=== PATIENT | female | born 1975 | race Caucasian/White ===

== ENCOUNTER 2017-04-07 17:35 | Inpatient (IN) ==
--- NOTE | 2017-04-07 18:00 | Emergency Department Note ---
Disposition Clinical Impression: Suicidal ideation, Intoxication Overdose Qualifiers: Encounter type: initial encounter Injury intent: intentional self-harm Qualified Code(s): T50.902A - Poisoning by unspecified drugs, medicaments and biological substances, intentional self-harm, initial encounter Disposition: Admitted As Inpatient Condition: Good General Adult HPI - General Chief complaint: ED Psychiatric Symptoms Stated complaint: si/overdose/etoh Time Seen by Provider: 04/07/17 17:39 Source: patient Limitations: no limitations Nursing Notes Reviewed: Yes Vital Signs Reviewed: Yes - History of Present Illness HPI Narrative: Patient here for evaluation of suicidal ideation and overdose. Patient was found in the garage by her . Patient had multiple pill bottles as well as alcohol out. There was no running motor vehicle however there were spray paint cans with no specific evidence of huffing. Suicidal intention 2/2 recent "stresses" that include multiple aspects of her life. Pain Scale: 0 - Related Data Home Medications Medication Instructions Recorded Confirmed ALPRAZolam [Xanax 0.25 MG Tablet] 0.25 mg PO TID PRN 04/07/17 04/07/17 Albuterol Sulfate [Albuterol 1 puff IH DAILY 04/07/17 04/07/17 Inhaler] Allergies Allergy/AdvReac Type Severity Reaction Status Date / Time No Known Allergies Allergy Verified 04/07/17 17:51 All systems ED: reviewed and negative except as stated. Constitutional: Denies: fever, weakness Cardiovascular: Denies: chest pain, palpitations, dyspnea on exertion Respiratory: Denies: cough, dyspnea Gastrointestinal: Denies: abdominal pain, nausea Genitourinary: Denies: urgency, dysuria Musculoskeletal: Denies: back pain, neck pain Neurological: Denies: headache, weakness Psychiatric: Reports: suicidal thoughts Endocrine: Reports: fatigue Past Medical History - Past Medical History Medical history: Reports: non-contributory - Social History Smoking Status: Never smoker Smokeless Tobacco Status: No Alcohol use: Reports: none Drug use: Reports: none Physical Exam General appearance: mild sluring of words Eyes: anicteric sclerae, moist conjunctivae; PERRL HENT: Atraumatic; oropharynx clear with moist mucous membranes and no mucosal ulcerations; right pupil 2mm left 3mm reactive b/l - chronic Neck: Normal inspection; Trachea midline; FROM, supple Lungs: CTA, with normal respiratory effort and no intercostal retractions CV: RRR, no MRGs Abdomen: Soft, non-tender; no rebound or gaurding Extremities: No peripheral edema or extremity lymphadenopathy Skin: Normal temperature; no rash, ulcers or lesions Psych: Suicidal ideation Neuro: alert and oriented to person, place and time - General Limitations: no limitations General appearance: alert Course - Consultations Consultation #1: Discussed with poison control. Patient peak asthma concentration of alprazolam would be in the first 1-2 hours. The other medications include symptomatic control. No intervention needed at this time. Consultation #2: Discussed with hospitalist. Patient except for admission. Vital Signs Temperature 98.6 F 04/07/17 17:38 Pulse Rate 101 04/07/17 17:38 Respiratory Rate 18 04/07/17 17:38 Blood Pressure 106/56 04/07/17 17:38 O2 Sat by Pulse Oximetry 95 04/07/17 17:38 Temperature 98.2 F 04/08/17 12:06 Pulse Rate 97 04/08/17 12:06 Respiratory Rate 16 04/08/17 12:06 Blood Pressure 123/63 04/08/17 12:06 O2 Sat by Pulse Oximetry 98 04/08/17 12:06 Oxygen Delivery Oxygen Delivery Room Air Medical Decision Making - Medical Records Medical records reviewed: Yes I reviewed the patient's medical records. - Lab Data Lab results reviewed: Yes I reviewed the patient's lab results. Result diagrams: 04/08/17 03:48 04/08/17 03:48 Lab Results 04/07/17 04/07/17 04/07/17 Range/Units 17:45 17:45 17:45 WBC (4.3-11.1) K/mcL RBC (3.82-4.97) M/mcL Hgb (11.5-15.4) g/dL Hct (35.3-44.9) % MCV (83.0-100.0) fL MCH (28.0-33.3) pg MCHC (31.6-35.5) g/dL RDW (11.5-14.5) % Plt Count (140-400) K/mcL MPV (9.4-12.4) fL Immature Gran % (0-4) % Seg Neutrophils % % Lymphocytes % % Monocytes % % Eosinophils % % Basophils % % Neutrophils # (1.6-8.9) K/mcL Lymphocytes # (0.6-4.6) K/mcL Monocytes # (0.0-1.3) K/mcL Eosinophils # (0.0-0.6) K/mcL Basophils # (0.0-0.2) K/mcL Carboxyhemoglobin (0-5) % Sodium (136-145) mEq/L Potassium (3.5-4.5) mEq/L Chloride (98-109) mEq/L Carbon Dioxide (19-29) mEq/L BUN (7-20) mg/dL Creatinine (0.57-1.11) mg/dL Est GFR ( Amer) (> 60) Est GFR (Non-Af Amer) (> 60) BUN/Creatinine Ratio (6-26) Glucose (70-99) mg/dL Calculated Osmolality (280-300) Calcium (8.6-10.8) mg/dL Total Bilirubin (0.2-1.2) mg/dL Direct Bilirubin (0.0-0.5) mg/dL Indirect Bilirubin (0.0-1.2) mg/dL AST (5-34) Units/L ALT (0-55) Units/L Alkaline Phosphatase (38-126) Units/L Serum Total Protein (6.0-8.3) g/dL Albumin (3.5-5.0) g/dL Globulin (2.4-3.5) g/dL Albumin/Globulin Ratio (1.1-2.2) Serum , Qual (Negative) Urine Color Yellow (Yellow) Urine Clarity Clear (Clear) Urine pH 6.5 (5.0-8.0) pH Units Ur Specific [place] 1.006 L (1.010-1.025) Urine Protein Negative (Neg-Trace) mg/dL Urine Glucose (UA) Normal (Normal) mg/dL Urine Ketones Negative (Negative) mg/dL Urine Blood Negative (Negative) Urine Nitrite Negative (Negative) Urine Bilirubin Negative (Negative) Urine Urobilinogen Normal (Normal) mg/dL Ur Leukocyte Esterase Negative (Negative) Urine Test Negative (Negative) Salicylates (15-30) mg/dL Urine Opiates Screen Negative (Rraqpz=284) ng/mL Acetaminophen (10-30) mcg/mL Ur Barbiturates Screen Negative (Fvypbb=971) ng/mL Ur Phencyclidine Scrn Negative (Cutoff=25) ng/mL Ur Amphetamines Screen Negative (Oudbse=1722) ng/mL U Benzodiazepines Scrn Negative (Niluvm=264) ng/mL Urine Cocaine Screen Negative (Cutoff= 300) ng/mL U Marijuana (THC) Screen Negative (Cutoff = 50) ng/mL Ethyl Alcohol (0-10) mg/dL 04/07/17 04/07/17 04/07/17 Range/Units 18:19 18:19 18:19 WBC 10.5 (4.3-11.1) K/mcL RBC 4.76 (3.82-4.97) M/mcL Hgb 14.6 (11.5-15.4) g/dL Hct 43.4 (35.3-44.9) % MCV 91.2 (83.0-100.0) fL MCH 30.7 (28.0-33.3) pg MCHC 33.6 (31.6-35.5) g/dL RDW 12.8 (11.5-14.5) % Plt Count 231 (140-400) K/mcL MPV 10.1 (9.4-12.4) fL Immature Gran % 0.4 (0-4) % Seg Neutrophils % 66.8 % Lymphocytes % 25.4 % Monocytes % 5.1 % Eosinophils % 1.3 % Basophils % 1.0 % Neutrophils # 7.0 (1.6-8.9) K/mcL Lymphocytes # 2.7 (0.6-4.6) K/mcL Monocytes # 0.5 (0.0-1.3) K/mcL Eosinophils # 0.1 (0.0-0.6) K/mcL Basophils # 0.1 (0.0-0.2) K/mcL Carboxyhemoglobin (0-5) % Sodium 137 (136-145) mEq/L Potassium 3.6 (3.5-4.5) mEq/L Chloride 102 (98-109) mEq/L Carbon Dioxide 23 (19-29) mEq/L BUN 3 L (7-20) mg/dL Creatinine 0.63 (0.57-1.11) mg/dL Est GFR ( Amer) > 60 (> 60) Est GFR (Non-Af Amer) > 60 (> 60) BUN/Creatinine Ratio 5 L (6-26) Glucose 89 (70-99) mg/dL Calculated Osmolality 280 (280-300) Calcium 8.7 (8.6-10.8) mg/dL Total Bilirubin 0.7 (0.2-1.2) mg/dL Direct Bilirubin 0.3 (0.0-0.5) mg/dL Indirect Bilirubin 0.4 (0.0-1.2) mg/dL AST 38 H (5-34) Units/L ALT 35 (0-55) Units/L Alkaline Phosphatase 74 (38-126) Units/L Serum Total Protein 6.8 (6.0-8.3) g/dL Albumin 3.9 (3.5-5.0) g/dL Globulin 2.9 (2.4-3.5) g/dL Albumin/Globulin Ratio 1.3 (1.1-2.2) Serum , Qual Negative (Negative) Urine Color (Yellow) Urine Clarity (Clear) Urine pH (5.0-8.0) pH Units Ur Specific [place] (1.010-1.025) Urine Protein (Neg-Trace) mg/dL Urine Glucose (UA) (Normal) mg/dL Urine Ketones (Negative) mg/dL Urine Blood (Negative) Urine Nitrite (Negative) Urine Bilirubin (Negative) Urine Urobilinogen (Normal) mg/dL Ur Leukocyte Esterase (Negative) Urine Test (Negative) Salicylates < 5.0 L (15-30) mg/dL Urine Opiates Screen (Rzssvz=750) ng/mL Acetaminophen < 1.0 L (10-30) mcg/mL Ur Barbiturates Screen (Wfbstc=349) ng/mL Ur Phencyclidine Scrn (Cutoff=25) ng/mL Ur Amphetamines Screen (Paiift=0307) ng/mL U Benzodiazepines Scrn (Epxrcd=311) ng/mL Urine Cocaine Screen (Cutoff= 300) ng/mL U Marijuana (THC) Screen (Cutoff = 50) ng/mL Ethyl Alcohol 304 H (0-10) mg/dL 04/07/17 Range/Units 18:19 WBC (4.3-11.1) K/mcL RBC (3.82-4.97) M/mcL Hgb (11.5-15.4) g/dL Hct (35.3-44.9) % MCV (83.0-100.0) fL MCH (28.0-33.3) pg MCHC (31.6-35.5) g/dL RDW (11.5-14.5) % Plt Count (140-400) K/mcL MPV (9.4-12.4) fL Immature Gran % (0-4) % Seg Neutrophils % % Lymphocytes % % Monocytes % % Eosinophils % % Basophils % % Neutrophils # (1.6-8.9) K/mcL Lymphocytes # (0.6-4.6) K/mcL Monocytes # (0.0-1.3) K/mcL Eosinophils # (0.0-0.6) K/mcL Basophils # (0.0-0.2) K/mcL Carboxyhemoglobin 12.1 H (0-5) % Sodium (136-145) mEq/L Potassium (3.5-4.5) mEq/L Chloride (98-109) mEq/L Carbon Dioxide (19-29) mEq/L BUN (7-20) mg/dL Creatinine (0.57-1.11) mg/dL Est GFR ( Amer) (> 60) Est GFR (Non-Af Amer) (> 60) BUN/Creatinine Ratio (6-26) Glucose (70-99) mg/dL Calculated Osmolality (280-300) Calcium (8.6-10.8) mg/dL Total Bilirubin (0.2-1.2) mg/dL Direct Bilirubin (0.0-0.5) mg/dL Indirect Bilirubin (0.0-1.2) mg/dL AST (5-34) Units/L ALT (0-55) Units/L Alkaline Phosphatase (38-126) Units/L Serum Total Protein (6.0-8.3) g/dL Albumin (3.5-5.0) g/dL Globulin (2.4-3.5) g/dL Albumin/Globulin Ratio (1.1-2.2) Serum , Qual (Negative) Urine Color (Yellow) Urine Clarity (Clear) Urine pH (5.0-8.0) pH Units Ur Specific [place] (1.010-1.025) Urine Protein (Neg-Trace) mg/dL Urine Glucose (UA) (Normal) mg/dL Urine Ketones (Negative) mg/dL Urine Blood (Negative) Urine Nitrite (Negative) Urine Bilirubin (Negative) Urine Urobilinogen (Normal) mg/dL Ur Leukocyte Esterase (Negative) Urine Test (Negative) Salicylates (15-30) mg/dL Urine Opiates Screen (Bgzrjf=072) ng/mL Acetaminophen (10-30) mcg/mL Ur Barbiturates Screen (Vmvcrz=851) ng/mL Ur Phencyclidine Scrn (Cutoff=25) ng/mL Ur Amphetamines Screen (Yxvleq=2468) ng/mL U Benzodiazepines Scrn (Bxiubj=777) ng/mL Urine Cocaine Screen (Cutoff= 300) ng/mL U Marijuana (THC) Screen (Cutoff = 50) ng/mL Ethyl Alcohol (0-10) mg/dL - Radiology Data Radiology results reviewed: Yes I reviewed the patient's radiology results. - EKG Data EKG #1 EKG attestation: Yes I reviewed and interpreted this EKG. EKG results narrative: EKG shows sinus rhythm with short MO interval. Ventricular rate 97. PR107. QRS 98. QTC 415. Patient has no significant ST elevations or depressions. No specific T-wave changes. No previous EKGs for comparison. Attestation Statement - Attestation Attestation: I, Alexx Milner, examined this patient and my medical decision-making was reviewed with the [employer] EXPERT/PA/Advanced Practice Nurse/Resident Physician. I agree with the documented findings, disposition and treatment plan as described except to the extent set forth below. 41-year-old female brought in by EMS with concerns of suicidal ideation. states the patient has been drinking increased amounts of alcohol over the past few weeks. She is also begun to hide alcohol around the house. found patient in garage with altered mental status, on the floor. She was interactive when he entered the room however she is intoxicated admitting to several beers. There were also multiple pill bottles surrounding the patient and patient states she took "a handful of pills" her how many pills are missing from the pill bottles as they are old prescriptions. Patient is awake and alert in the emergency department although she is visibly intoxicated. Resident spoke with poison control. Patient will be admitted to the hospitalist for further care and evaluation. EKG showed normal sinus rhythm with rate 97, QRS 98, QTC 415.
[2017-04-07] MEDS ORDERED: 0.9 % Sodium Chloride 1,000 ML IVC ONE (18:01)
[2017-04-07 18:11] LABS: Bilirubin,Urine Negative (Negative); Blood,Urine Negative (Negative); Clarity,Urine Clear (Clear); Color,Urine Yellow (Yellow); Glucose,Urine (UA) Normal (Normal); Ketones,Urine Negative (Negative); Leukocyte Esterase,Urine Negative (Negative); Nitrite,Urine Negative (Negative); PH,Urine 6.5 pH Units (5.0-8.0); Protein,Urine Negative (Neg-Trace); Specific Gravity,Urine 1.006 (1.010-1.025); Urobilinogen,Urine Normal (Normal)
[2017-04-07 18:17] LABS: Amphetamine Screen,Urine Negative ng/mL (Cutoff=1000); Barbiturate Screen,Urine Negative ng/mL (Cutoff=200); Benzodiazepines Screen,Urine Negative ng/mL (Cutoff=200); Cannabinoid Screen,Urine Negative ng/mL (Cutoff = 50); Cocaine Screen,Urine Negative ng/mL (Cutoff= 300); Opiate Screen,Urine Negative ng/mL (Cutoff=300); Phencyclidine Screen,Urine Negative ng/mL (Cutoff=25)
[2017-04-07 18:27] LABS: Basophils # 0.1 K/mcL (0.0-0.2); Eosinophils # 0.1 K/mcL (0.0-0.6); Eosinophils % 1.3 %; Hematocrit 43.4 % (35.3-44.9); Hemoglobin 14.6 g/dL (11.5-15.4); Immature Granulocytes % 0.4 % (0-4); Lymphocytes # 2.7 K/mcL (0.6-4.6); Lymphocytes % 25.4 %; Mean Corpuscular HGB Conc 33.6 g/dL (31.6-35.5); Mean Corpuscular Hemoglobin 30.7 pg (28.0-33.3); Mean Corpuscular Volume 91.2 fL (83.0-100.0); Mean Platelet Volume 10.1 fL (9.4-12.4); Monocytes # 0.5 K/mcL (0.0-1.3); Monocytes % 5.1 %; Platelet Count 231 K/mcL (140-400); Red Blood Count 4.76 M/mcL (3.82-4.97); Red Cell Distribution Width 12.8 % (11.5-14.5); Segmented Neutrophils % 66.8 %
[2017-04-07 18:43] LABS: Alanine Aminotransferase 35 Units/L (0-55); Albumin 3.9 g/dL (3.5-5.0); Albumin/Globulin Ratio 1.3 (1.1-2.2); Alkaline Phosphatase 74 Units/L (38-126); Aspartate Amino Transferase 38 Units/L (5-34); BUN/Creatinine Ratio 5 (6-26); Bilirubin,Direct 0.3 mg/dL (0.0-0.5); Bilirubin,Indirect 0.4 mg/dL (0.0-1.2); Bilirubin,Total 0.7 mg/dL (0.2-1.2); Calcium 8.7 mg/dL (8.6-10.8); Carbon Dioxide 23 mEq/L (19-29); Chloride 102 mEq/L (98-109); Ethanol 304 mg/dL (0-10); Globulin 2.9 g/dL (2.4-3.5); Glucose 89 mg/dL (70-99); Osmolality,Calculated 280 (280-300); Potassium 3.6 mEq/L (3.5-4.5); Sodium 137 mEq/L (136-145); Total Protein 6.8 g/dL (6.0-8.3); eGFR For African Americans > 60 (> 60); eGFR For Non-African Americans > 60 (> 60)
[2017-04-07 18:44] LABS: Acetaminophen < 1.0 mcg/mL (10-30); Blood Urea Nitrogen 3 mg/dL (7-20); Salicylate < 5.0 mg/dL (15-30)
[2017-04-07] MEDS ORDERED: Naloxone 0.4 MG/ML INJ IVP PRN (20:22)
[2017-04-07] MEDS ORDERED: Acetaminophen 325 MG TABLET PO PRN (20:22)
[2017-04-07] MEDS ORDERED: Ondansetron 4 MG/2 ML VIAL IVP PRN (20:22)
[2017-04-07] MEDS ORDERED: Ketorolac 30 MG/ML VIAL IVP PRN (20:22)
[2017-04-07] MEDS ORDERED: *HR* LORazepam 2 MG/ML VIAL IVP PRN ×3 (20:26)
[2017-04-07] MEDS ORDERED: Ipratropium/Albuterol Neb 3 ML IH PRN (20:28)
--- NOTE | 2017-04-07 20:32 | Internal Med History&Physical ---
Date of Encounter: 04/07/17 Time of Encounter: 20:29 Assessment and Plan (1) Suicide attempt Current visit: Yes Status: Acute Sitter Ativan as needed for CIWA scale due to alcohol abuse Observation, psychiatry consult, telemetry Omeprazole for GI prophylaxis and subcutaneous heparin for DVT prophylaxis. Patient will be admitted for observation. Full code. Time spent on this admission 40 minutes. (2) Tobacco abuse Current visit: Yes Status: Acute Smoking cessation counseling given for 5 minutes. Nicotine patch offered (3) Alcohol abuse Current visit: Yes Status: Acute (4) Depression Current visit: Yes Status: Acute Psychiatry consult Qualifiers: Depression Type: major depressive disorder Major depression recurrence: recurrent Active/Remission status: currently active Major depression episode severity: severe Psychotic features: without psychotic features Qualified Code(s): F33.2 - Major depressive disorder, recurrent severe without psychotic features (5) Intoxication Current visit: Yes Status: Acute Fall precautions (6) Overdose Current visit: Yes Status: Acute Monitoring Qualifiers: Encounter type: initial encounter Injury intent: undetermined intent Qualified Code(s): T50.904A - Poisoning by unspecified drugs, medicaments and biological substances, undetermined, initial encounter Internal Medicine - H&P: HPI Chief complaint: Suicidal attempt Admitted From: Emergency Dept History of present illness: Ms. Philip is a 41 year old female with a past medical history of anxiety, depression, alcohol abuse, asthma continue emergency room after she was found in the garage. The patient took a large amount of alcohol her alcohol level is 304 and apparently she to look a lot of pills of alprazolam (hers), escitalopram methylphenidate that belonged to other family members. The patient was somnolent but is getting better. Poison control was called by the ER. No other recommendations were made. Patient has a small laceration in the right for head, she does not remember falling or hitting her head. CT scan of the head and C-spine did not show any abnormalities. She appears slightly dehydrated and her heart rate is 101. She is able to give a proper history and feels slightly better. Needs to be cleared medically to be transferred tomorrow Past Med Surg Social Fam HX - Past Medical History Medical history: other (Alcohol abuse, tobacco abuse, asthma and depression, anxiety) Psychiatric history: anxiety, depression - Past Surgical History Surgical History: other (Tonsillectomy) - Social History Smoking Status: Current every day smoker Packs per day: One pack per day Smokeless Tobacco Status: No Alcohol use: heavy (12 beers daily) Drug use: none - Additional Family History Additional family history: Maternal grandfather with alcoholism Internal Medicine - H&P: Meds No Known Home Drugs 04/07/17 [History] Allergies No Known Allergies Allergy (Verified 04/07/17 17:51) All Systems PM: A 10-system review of systems was performed and is negative for pertinent findings except as documented above in the HPI. Review of systems: Denies any headache, other systems out of the 10 reviewed were negative - Constitutional Vitals: Temp Pulse Resp BP Pulse Ox 98.6 F 101 18 106/56 95 04/07/17 17:38 04/07/17 17:38 04/07/17 17:38 04/07/17 17:38 04/07/17 17:38 General appearance: Present: A&O X 3 (Small laceration in the right forehead) - Head Head exam: Present: atraumatic, normocephalic - Eye Eye exam: Present: PERRL, conjuntiva pink, sclera anicteric Pupils: Present: PERRL - Neck Neck exam general surgery: Present: supple, trachea midline. Absent: lymphadenopathy - Respiratory Respiratory exam: Present: CTAB. Absent: accessory muscle use, rales, rhonchi, wheezes - Cardiovascular Cardiovascular exam: Present: RRR, +S1, +S2. Absent: diastolic murmur, gallop, rubs, systolic murmur - GI/Abdominal GI/Abdominal exam: Present: normal bowel sounds, soft, no peritoneal signs. Absent: distended, tenderness - Extremities Exam Extremities exam: Present: warm, radial pulses palpable and symetrical. Absent : calf tenderness, cyanotic, pedal edema - Neurological Exam Neurological exam: Present: CN II-XII intact, oriented X3, no focal deficits. Absent: pronater drift, facial droop, speech deficit - Skin Skin exam: Present: dry, intact Internal Med - H&P Results - Labs CBC & Chem 7: 04/07/17 18:19 04/07/17 18:19
[2017-04-07] MEDS: 0.9 % Sodium Chloride 1,000 ML IVC SCH (21:45)
[2017-04-07] MEDS: Nicotine 21 MG PATCH.TD24 TD SCH (23:55)
[2017-04-07] MEDS: *HR* Heparin 5,000 UNIT/ML VIAL SQ SCH (23:56)
[2017-04-07] MEDS: Thiamine (B-1) 100 MG TABLET PO SCH (23:56)
[2017-04-07] MEDS: Folic Acid 1 MG TABLET PO SCH (23:56)
[2017-04-08] MEDS: Vitamin B Complex/Vit C/Vit E 1 EACH TABLET PO SCH ×2 (01:32→09:32)
[2017-04-08] MEDS: 0.9 % Sodium Chloride 1,000 ML IVC SCH ×2 (03:19→19:30)
[2017-04-08 04:19] LABS: Hematocrit 39.9 % (35.3-44.9); Hemoglobin 13.7 g/dL (11.5-15.4); Mean Corpuscular HGB Conc 34.3 g/dL (31.6-35.5); Mean Corpuscular Hemoglobin 31.4 pg (28.0-33.3); Mean Corpuscular Volume 91.3 fL (83.0-100.0); Mean Platelet Volume 10.4 fL (9.4-12.4); Platelet Count 216 K/mcL (140-400); Red Blood Count 4.37 M/mcL (3.82-4.97); Red Cell Distribution Width 13.1 % (11.5-14.5)
[2017-04-08 05:13] LABS: Alanine Aminotransferase 30 Units/L (0-55); Albumin 3.3 g/dL (3.5-5.0); Albumin/Globulin Ratio 1.3 (1.1-2.2); Alkaline Phosphatase 71 Units/L (38-126); Aspartate Amino Transferase 29 Units/L (5-34); BUN/Creatinine Ratio 8 (6-26); Bilirubin,Total 0.5 mg/dL (0.2-1.2); Blood Urea Nitrogen 6 mg/dL (7-20); Calcium 8.5 mg/dL (8.6-10.8); Carbon Dioxide 27 mEq/L (19-29); Chloride 105 mEq/L (98-109); Globulin 2.6 g/dL (2.4-3.5); Glucose 93 mg/dL (70-99); Osmolality,Calculated 285 (280-300); Potassium 3.9 mEq/L (3.5-4.5); Sodium 139 mEq/L (136-145); Total Protein 5.9 g/dL (6.0-8.3); eGFR For African Americans > 60 (> 60); eGFR For Non-African Americans > 60 (> 60)
[2017-04-08] MEDS: *HR* Heparin 5,000 UNIT/ML VIAL SQ SCH (06:18)
[2017-04-08] MEDS: Thiamine (B-1) 100 MG TABLET PO SCH (09:32)
[2017-04-08] MEDS: Nicotine 21 MG PATCH.TD24 TD SCH (09:32)
[2017-04-08] MEDS: Folic Acid 1 MG TABLET PO SCH (09:32)
--- NOTE | 2017-04-08 09:35 | Internal Med Progress Note ---
Date of Encounter: 04/08/17 Time of Encounter: 09:00 - Constitutional Vitals: Temp Pulse Resp BP Pulse Ox 97.8 F 100 16 111/58 95 04/08/17 07:08 04/08/17 07:08 04/08/17 07:08 04/08/17 07:08 04/08/17 07:08 General appearance: Present: A&O X 3 (Small laceration in the right forehead) Internal Medicine: Result - Labs CBC & Chem 7: 04/08/17 03:48 04/08/17 03:48 Labs: Short CBC 04/08/17 Range/Units 03:48 WBC 8.6 (4.3-11.1) K/mcL Hgb 13.7 (11.5-15.4) g/dL Hct 39.9 (35.3-44.9) % Plt Count 216 (140-400) K/mcL BMP 04/08/17 03:48 Sodium 139 Potassium 3.9 Chloride 105 Carbon Dioxide 27 BUN 6 L Creatinine 0.72 Glucose 93 Calcium 8.5 L Liver Function 04/08/17 Range/Units 03:48 Total Bilirubin 0.5 (0.2-1.2) mg/dL AST 29 (5-34) Units/L ALT 30 (0-55) Units/L Alkaline Phosphatase 71 (38-126) Units/L Albumin 3.3 L (3.5-5.0) g/dL Consult Discharge Plan - Plan Referrals: NONE,PCP [Primary Care Provider] -
--- NOTE | 2017-04-08 10:41 | Consult Note ---
Date of Encounter: 04/08/17 Time of Encounter: 09:10 Assessment & Recommendation (1) Overdose Current visit: Yes Status: Acute Qualifiers: Encounter type: initial encounter Injury intent: intentional self-harm Qualified Code(s): T50.902A - Poisoning by unspecified drugs, medicaments and biological substances, intentional self-harm, initial encounter (2) Suicide attempt Current visit: Yes Status: Acute (3) Tobacco abuse Current visit: Yes Status: Acute (4) Alcohol abuse Current visit: Yes Status: Acute (5) Depression Current visit: Yes Status: Acute Qualifiers: Depression Type: major depressive disorder Major depression recurrence: recurrent Active/Remission status: currently active Major depression episode severity: severe Psychotic features: without psychotic features Qualified Code(s): F33.2 - Major depressive disorder, recurrent severe without psychotic features History of Present Illness Requesting Physician: Reginaldo Castillo DO Reason for consult: suicide attempt with overdose. History of present illness: Ms. Philip is a 41 year old MW female seen today for consult at Medical floor. she has history of depression , anxiety and alcohol abuse, and Bulimia. patient was seen along with her Mr. Trimble , she was tearful , hopeless , tremendous guilt. she denies suicidal thoughts at present but is severely depressed and anxious, she has been drinking daily and for last 6-12 months it has been increased significantly , she has no prior history of rehab/or psych inpatient, no prior Suicidal ideation or attempts. she has been more depressed since moved here from [place] 2 yrs ago. At present patient needs continuos close observation . inpatient psychiatric treatment for depression/anxiety and alcoholism. CC: Reginaldo Castillo DO Past Med Surg Social [facility] - Past Medical History Medical history: asthma - Past Psychiatric History Psychiatric history: Reports: anxiety, depression, panic disorder Family psychiatric history: Yes Family History of Suicide: Completed (her maternal cousin commited suicide.) - Past Surgical History Surgical History: other (Tonsillectomy) - Social History Smoking Status: Current every day smoker Smokeless Tobacco Status: No Alcohol use: heavy Drug use: none - Family History Mother Living Status: Unknown Father Living Status: Unknown Medications & Allergies ALPRAZolam [Xanax 0.25 MG Tablet] 0.25 mg PO TID PRN 04/07/17 [History] Albuterol Sulfate [Albuterol Inhaler] 1 puff IH DAILY 04/07/17 [History] Allergies No Known Allergies Allergy (Verified 04/07/17 17:51) Review of Systems Constitutional: Denies: fever, chills, weakness, weight change Eyes: Denies: eye pain, vision change Ears, Nose, Throat: Denies: ear pain, throat pain, dental pain, hearing loss, congestion Cardiovascular: Denies: chest pain, palpitations, dyspnea on exertion Respiratory: Denies: cough, dyspnea, wheezes Gastrointestinal: Denies: abdominal pain, nausea, vomiting, diarrhea, constipation Genitourinary male: Denies: urgency, dysuria, frequency, genital lesions Genitourinary female: Denies: urgency, dysuria, frequency, abnormal menses, dyspareunia Musculoskeletal: Denies: joint swelling, joint pain Integumentary: Denies: rash, lesions, pruritus Neurological: Denies: headache, weakness, numbness, memory loss Psychiatric: Reports: depression, anxiety, abnormal sleep pattern, suicidal ideation, change in appetite, hopelessness, panic attacks Endocrine: Denies: fatigue, heat or cold intolerance Hematologic/Lymphatic: Denies: easy bruising, lymphadenopathy Allergic/Immunologic: Denies: urticaria, itchy eyes Mental Status Exam Patient orientation: Yes Person, Yes Time, Yes Place Level of alertness: Alert Patient appearance: Average Behavior: anxious, tearful Psychomotor activity: Slowed Eye contact: Maintains Eye Contact Mood description: Depressed, Anxious Affect description: tearful, dysphoric Speech pattern: Normal rate Speech volume: Soft/Quiet Thought process: Slowed Thinking Thought content: Yes Guilt Attention span: Unable to Sustain Attention Memory description: Grossly Intact Patient reliability: Reliable Historian Intelligence estimate: Average Judgment: Limited Insight: Partial Results - Vital Signs Vital signs: Temp Pulse Resp BP Pulse Ox 97.8 F 100 16 111/58 95 04/08/17 07:08 04/08/17 07:08 04/08/17 07:08 04/08/17 07:08 04/08/17 07:08 - Labs Labs: Laboratory Last Values WBC 8.6 K/mcL (4.3-11.1) 04/08/17 03:48 RBC 4.37 M/mcL (3.82-4.97) 04/08/17 03:48 Hgb 13.7 g/dL (11.5-15.4) 04/08/17 03:48 Hct 39.9 % (35.3-44.9) 04/08/17 03:48 MCV 91.3 fL (83.0-100.0) 04/08/17 03:48 MCH 31.4 pg (28.0-33.3) 04/08/17 03:48 MCHC 34.3 g/dL (31.6-35.5) 04/08/17 03:48 RDW 13.1 % (11.5-14.5) 04/08/17 03:48 Plt Count 216 K/mcL (140-400) 04/08/17 03:48 MPV 10.4 fL (9.4-12.4) 04/08/17 03:48 Immature Gran % 0.4 % (0-4) 04/07/17 18:19 Seg Neutrophils % 66.8 % 04/07/17 18:19 Lymphocytes % 25.4 % 04/07/17 18:19 Monocytes % 5.1 % 04/07/17 18:19 Eosinophils % 1.3 % 04/07/17 18:19 Basophils % 1.0 % 04/07/17 18:19 Neutrophils # 7.0 K/mcL (1.6-8.9) 04/07/17 18:19 Lymphocytes # 2.7 K/mcL (0.6-4.6) 04/07/17 18:19 Monocytes # 0.5 K/mcL (0.0-1.3) 04/07/17 18:19 Eosinophils # 0.1 K/mcL (0.0-0.6) 04/07/17 18:19 Basophils # 0.1 K/mcL (0.0-0.2) 04/07/17 18:19 Carboxyhemoglobin 12.1 % (0-5) H 04/07/17 18:19 Sodium 139 mEq/L (136-145) 04/08/17 03:48 Potassium 3.9 mEq/L (3.5-4.5) 04/08/17 03:48 Chloride 105 mEq/L (98-109) 04/08/17 03:48 Carbon Dioxide 27 mEq/L (19-29) 04/08/17 03:48 BUN 6 mg/dL (7-20) L 04/08/17 03:48 Creatinine 0.72 mg/dL (0.57-1.11) 04/08/17 03:48 Est GFR ( Amer) > 60 (> 60) 04/08/17 03:48 Est GFR (Non-Af Amer) > 60 (> 60) 04/08/17 03:48 BUN/Creatinine Ratio 8 (6-26) 04/08/17 03:48 Glucose 93 mg/dL (70-99) 04/08/17 03:48 Calculated Osmolality 285 (280-300) 04/08/17 03:48 Calcium 8.5 mg/dL (8.6-10.8) L 04/08/17 03:48 Total Bilirubin 0.5 mg/dL (0.2-1.2) 04/08/17 03:48 Direct Bilirubin 0.3 mg/dL (0.0-0.5) 04/07/17 18:19 Indirect Bilirubin 0.4 mg/dL (0.0-1.2) 04/07/17 18:19 AST 29 Units/L (5-34) 04/08/17 03:48 ALT 30 Units/L (0-55) 04/08/17 03:48 Alkaline Phosphatase 71 Units/L (38-126) 04/08/17 03:48 Serum Total Protein 5.9 g/dL (6.0-8.3) L 04/08/17 03:48 Albumin 3.3 g/dL (3.5-5.0) L 04/08/17 03:48 Globulin 2.6 g/dL (2.4-3.5) 04/08/17 03:48 Albumin/Globulin Ratio 1.3 (1.1-2.2) 04/08/17 03:48 Serum , Qual Negative (Negative) 04/07/17 18:19 Urine Color Yellow (Yellow) 04/07/17 17:45 Urine Clarity Clear (Clear) 04/07/17 17:45 Urine pH 6.5 pH Units (5.0-8.0) 04/07/17 17:45 Ur Specific Purcell 1.006 (1.010-1.025) L 04/07/17 17:45 Urine Protein Negative mg/dL (Neg-Trace) 04/07/17 17:45 Urine Glucose (UA) Normal mg/dL (Normal) 04/07/17 17:45 Urine Ketones Negative mg/dL (Negative) 04/07/17 17:45 Urine Blood Negative (Negative) 04/07/17 17:45 Urine Nitrite Negative (Negative) 04/07/17 17:45 Urine Bilirubin Negative (Negative) 04/07/17 17:45 Urine Urobilinogen Normal mg/dL (Normal) 04/07/17 17:45 Ur Leukocyte Esterase Negative (Negative) 04/07/17 17:45 Urine Test Negative (Negative) 04/07/17 17:45 Salicylates < 5.0 mg/dL (15-30) L 04/07/17 18:19 Urine Opiates Screen Negative ng/mL (Aroglt=670) 04/07/17 17:45 Acetaminophen < 1.0 mcg/mL (10-30) L 04/07/17 18:19 Ur Barbiturates Screen Negative ng/mL (Nfvwol=808) 04/07/17 17:45 Ur Phencyclidine Scrn Negative ng/mL (Cutoff=25) 04/07/17 17:45 Ur Amphetamines Screen Negative ng/mL (Hgtozx=2851) 04/07/17 17:45 U Benzodiazepines Scrn Negative ng/mL (Uprybn=930) 04/07/17 17:45 Urine Cocaine Screen Negative ng/mL (Cutoff= 300) 04/07/17 17:45 U Marijuana (THC) Screen Negative ng/mL (Cutoff = 50) 04/07/17 17:45 Ethyl Alcohol 304 mg/dL (0-10) H 04/07/17 18:19 Consult Discharge Plan - Plan Referrals: NONE,PCP [Primary Care Provider] -
--- NOTE | 2017-04-08 11:17 | Discharge Summary ---
<Shaun Washington - Last Filed: 04/08/17 12:58> Date of Encounter: 04/08/17 Time of Encounter: 09:30 - Discharge Diagnosis (1) Overdose Priority: Primary Status: Acute Qualifiers: Encounter type: initial encounter Injury intent: intentional self-harm Qualified Code(s): T50.902A - Poisoning by unspecified drugs, medicaments and biological substances, intentional self-harm, initial encounter (2) Suicide attempt Priority: Secondary Status: Acute (3) Alcohol abuse Priority: Secondary Status: Acute (4) Depression Priority: Secondary Status: Acute Qualifiers: Depression Type: major depressive disorder Major depression recurrence: recurrent Active/Remission status: currently active Major depression episode severity: severe Psychotic features: without psychotic features Qualified Code(s): F33.2 - Major depressive disorder, recurrent severe without psychotic features - Discharge Medications Home Medications: Acetaminophen [Tylenol] 650 mg PO Q6HR PRN tab 04/08/17 [Rx] Albuterol Sulfate [Albuterol Inhaler] 2 puff IH [id number] PRN 04/08/17 [Rx] Folic Acid 1 mg PO DAILY tab 04/08/17 [Rx] Heparin 5,000 unit SQ Q8HR vial 04/08/17 [Rx] Ketorolac [Toradol] 30 mg IVP Q6HR PRN vial 04/08/17 [Rx] LORazepam [Ativan] 1 mg IVP Q1H PRN vial 04/08/17 [Rx] LORazepam [Ativan] 2 mg IVP Q4HR PRN vial 04/08/17 [Rx] LORazepam [Ativan] 4 mg IVP Q4HR PRN vial 04/08/17 [Rx] Naloxone [Narcan] 0.4 mg IVP Q2MIN PRN 04/08/17 [Rx] Nicotine Patch [Nicoderm] 21 mg TD DAILY 04/08/17 [Rx] Omeprazole [PriLOSEC] 20 mg PO DAILY@0630 04/08/17 [Rx] Ondansetron [Zofran] 4 mg IVP Q8HR PRN vial 04/08/17 [Rx] Thiamine (B-1) [Vitamin B-1] 100 mg PO DAILY tab 04/08/17 [Rx] Vitamin B Complex/Vit C/Vit E [Stresstab] 1 each PO DAILY tab 04/08/17 [Rx] Allergies/Adverse Reactions: Allergies No Known Allergies Allergy (Verified 04/07/17 17:51) Procedures/tests Complete & Pending: CT head: "IMPRESSION: No acute intracranial abnormality." CT c spine: "IMPRESSION: No acute abnormality of the cervical spine." Date of admission: 04/07/17 20:10 Primary care physician: PCP KELLEE Consults: 04/07/17 20:27 Consult to Binding Dyer [CONS] Routine Reason for SW Consult: eval 04/08/17 05:31 Consult to Psychiatry [CONS] Routine Consulting Provider: Janeth Orourke Reason for Consult: recent attempted suicide with overdose Call Completed: No Discharging clinician: Shaun Washington Anticipated date of discharge: 04/08/17 - Patient Status Condition: Good Functional capacity at discharge: independent ambulation Overall status at discharge: patient is progressing back to baseline - Discharge Instructions Follow Up With: NONE,PCP [Primary Care Provider] - Additional Instructions: Please follow up with your primary care provider within 1 week of discharge by Psychiatry. Please take any medications prescribed as directed. Please return to the Hospital for any new or worsening depression or suicidal ideation. - Diet and Activity Activity: resume usual activities as tolerated Diet: regular diet Interval History: Patient reports feeling better this morning. Denies current SI. Patient admits to attempting to OD on ETOH and Xanax. Patient has no prior Hx of SI, SA, psych hospitalization. Patient reports one episode of watery stool last night none since. patient denies RODRIGUEZ, CP, SOB, Nausea, Vomiting. Hospital course: Ms. Philip is a 41 year old female with PMHx of Depression, anxiety, ETOH abuse, asthma presented to the hospital brought in by family after found down in garage having consumed a large amount of ETOH and her xanax in an attempt to OD. Patient had no prior history of SI, prior attempts, psych hospitalization. CT head and neck were negative. Urine tox showed low salicylates and acetomenophen and an ETOH of 304, no other substances. Patient was hydrated with IV fluids, placed on CIWA protocol, and given thiamine, folate, and B complex. Aptient required no ativan per CIWA protocol. Patient was deemed medically stable and transferred to inpatient psychiatry. - Time Spent with Patient Total time spent providing and/or coordinating discharge services: - Constitutional Vitals: Temp Pulse Resp BP Pulse Ox 97.8 F 100 16 111/58 95 04/08/17 07:08 04/08/17 07:08 04/08/17 07:08 04/08/17 07:08 04/08/17 07:08 General appearance: Present: A&O X 3 (Small laceration in the right forehead) - Eye Eye exam: Present: PERRL - ENT ENT exam: Present: mucous membranes moist - Respiratory Respiratory exam: Present: CTAB. Absent: rales, rhonchi, wheezes - Cardiovascular Cardiovascular exam: Present: RRR, +S1, +S2. Absent: gallop, rubs - GI/Abdominal GI/Abdominal exam: Present: normal bowel sounds, soft. Absent: tenderness - Extremities Exam Extremities exam: Absent: pedal edema - Neurological Exam Neurological exam: Present: alert, oriented X3. Absent: speech deficit - Psychiatric Psychiatric exam: Present: depressed. Absent: homicidal ideation, suicidal ideation - Skin Skin exam: Present: dry, warm <Reginaldo Castillo - Last Filed: 04/08/17 19:02> Date of Encounter: 04/08/17 - Discharge Diagnosis (1) Overdose Status: Acute Qualifiers: Encounter type: subsequent encounter Injury intent: intentional self-harm Qualified Code(s): T50.902D - Poisoning by unspecified drugs, medicaments and biological substances, intentional self-harm, subsequent encounter (2) Suicidal ideation Priority: Primary Status: Acute (3) Alcohol abuse Status: Acute (4) Depression Status: Acute Qualifiers: Depression Type: major depressive disorder Major depression recurrence: recurrent Active/Remission status: currently active Major depression episode severity: severe Psychotic features: without psychotic features Qualified Code(s): F33.2 - Major depressive disorder, recurrent severe without psychotic features Date of admission: 04/08/17 13:49 Primary care physician: PCP NONE Hospital course: Ms. Philip is a 41 year old female - Time Spent with Patient Total time spent providing and/or coordinating discharge services: 37min - Constitutional Vitals: Temp Pulse Resp BP Pulse Ox 98.2 F 82 16 116/69 98 04/08/17 15:36 04/08/17 15:36 04/08/17 15:36 04/08/17 15:36 04/08/17 15:36 - Attending Attestation I examined this patient and my medical decision-making was reviewed with the Resident Physician on 04/08/17. I agree with the documented findings, disposition and treatment plan as described except to the extent set forth below. Ms. Philip was admitted following intentional overdose and suicidal ideation. She is to be discharged to inpatient psych. She is afebrile with stable vitals and medical clear for discharge. Exam Alert. Comfortable Mucus membranes dry Heart reg No wheeze Plan D/C to inpatient psych.
--- NOTE | 2017-04-08 12:38 | Electrocardiograph Report ---
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
[2017-04-08 15:37] VITALS: BP 116/69
[2017-04-08] MEDS ORDERED: *HR* Heparin 5,000 UNIT/ML VIAL SQ SCH (16:00)
== END 2017-04-08 20:00 | DRG 918 ==
LOC: 3BNU 17:35 → EMEROO 17:35 → SUATTDRO 20:10 → 3BNU 21:00
PROVIDERS: ADMIT Internal Medicine; ATTEND Internal Medicine

== ENCOUNTER 2017-04-08 20:33 | Inpatient (IN) ==
[2017-04-08] MEDS ORDERED: Mag Hydrox/Al Hydrox/Simeth 30 ML UDC PO PRN (21:53)
[2017-04-08] MEDS ORDERED: *HR* LORazepam 2 MG/ML VIAL IM PRN (21:53)
[2017-04-08] MEDS ORDERED: Haloperidol Lactate 5 MG/ML VIAL IM PRN (21:53)
[2017-04-08] MEDS ORDERED: *HR* LORazepam 1 MG TABLET PO PRN (21:53)
[2017-04-08] MEDS ORDERED: MOM Conc 10 ML UD.LIQ PO PRN (21:53)
[2017-04-08] MEDS ORDERED: hydrOXYzine pamoate 25 MG CAPSULE PO PRN (21:53)
[2017-04-08] MEDS ORDERED: Ibuprofen 400 MG TABLET PO PRN (21:53)
[2017-04-08] MEDS: traZODone 50 MG TABLET PO PRN (22:05)
[2017-04-09] MEDS: Nicotine 21 MG PATCH.TD24 TD SCH (08:52)
--- NOTE | 2017-04-09 13:11 | Psychiatry History & Physical ---
Date of Encounter: 04/09/17 Time of Encounter: 13:00 History of Present Illness Patient Stated Chief Complaint: i am alcoholic and i have depression and anxiety. Medicare Admission Attestation: For traditional Medicare patients the provided hospital inpatient services are reasonable and necessary and in the case of services not specified as inpatient -only under 42 CFR 419.22 (n), that they are appropriately provided as inpatient services in accordance 42 CFR 412.3. For Critical Access Hospital the patient may reasonably be expected to be discharged or transferred to a hospital within 96 hours after admission to the Critical Access Hospital. History of Present Illness: Ms. Philip is a 41 year old MW female evaluated today , she was seen as consult after her OD on xanax and alcohol was found by her in garage and bought in by EMS. patient has h/o depression /anxiety/ and alcoholism. she stopped Lexapro because it caused her weight gain. she has been drinking for years but for last 6-12 months increased significantly. she drinks 12 beers a day 12 oz. ans sometimes hard liquor, no h/o DT or legal issues. she feels isolative, lack of motivation , hopelessness, guilt, worthless all was progressively worse and has panic attacks and is tearful during session. she is not suicidal at present but hopeless, guilt and depression states i have family and has good support. no psychosis, no manic episode. Past Med Surg Social Fam HX - Past Medical History Medical history: asthma - Past Psychiatric History Psychiatric history: Reports: anxiety, depression, panic disorder Family psychiatric history: Yes Family History of Suicide: Attempted (maternal cousin commited suicide by hanging self.) - Past Surgical History Surgical History: other (Tonsillectomy) - Social History Smoking Status: Current every day smoker Smokeless Tobacco Status: No Alcohol use: heavy, recent Drug use: none Occupational status: employed Current living situation: Home, With Family Activity Level: Independent ambulation Recent Out of Country Travel Within the Last 8 Weeks: No Exposure or Possible Exposure to Illness During Travel: No - Family History Mother Living Status: Unknown Father Living Status: Unknown Medications & Allergies Acetaminophen [Tylenol] 650 mg PO Q6HR PRN tab 04/08/17 [Rx] Albuterol Sulfate [Albuterol Inhaler] 2 puff IH [id number] PRN 04/08/17 [Rx] Folic Acid 1 mg PO DAILY tab 04/08/17 [Rx] Heparin 5,000 unit SQ Q8HR vial 04/08/17 [Rx] Ketorolac [Toradol] 30 mg IVP Q6HR PRN vial 04/08/17 [Rx] LORazepam [Ativan] 1 mg IVP Q1H PRN vial 04/08/17 [Rx] LORazepam [Ativan] 2 mg IVP Q4HR PRN vial 04/08/17 [Rx] LORazepam [Ativan] 4 mg IVP Q4HR PRN vial 04/08/17 [Rx] Naloxone [Narcan] 0.4 mg IVP Q2MIN PRN 04/08/17 [Rx] Nicotine Patch [Nicoderm] 21 mg TD DAILY 04/08/17 [Rx] Omeprazole [PriLOSEC] 20 mg PO DAILY@0630 04/08/17 [Rx] Ondansetron [Zofran] 4 mg IVP Q8HR PRN vial 04/08/17 [Rx] Thiamine (B-1) [Vitamin B-1] 100 mg PO DAILY tab 04/08/17 [Rx] Vitamin B Complex/Vit C/Vit E [Stresstab] 1 each PO DAILY tab 04/08/17 [Rx] Allergies No Known Allergies Allergy (Verified 04/07/17 17:51) Review of Systems Psychiatric: Reports: depression, anxiety, anhedonia, difficulty concentrating, panic attacks Mental Status Exam Patient orientation: Yes Person, Yes Time, Yes Place Level of alertness: Alert Patient appearance: Appropriate Behavior: cooperative, anxious Psychomotor activity: Slowed Eye contact: Maintains Eye Contact Mood description: Depressed, Anxious Affect description: congruent with mood, tearful Speech pattern: Slowed Speech volume: Normal Thought process: Intact Thought content: Yes Guilt Attention span: Capable of Focused Attention Memory description: Grossly Intact Patient reliability: Reliable Historian Intelligence estimate: Average Judgment: Fair Insight: Full Exam - HEENT Head exam IM: Present: atraumatic, normal inspection, normocephalic Eye exam IM: Present: normal appearance ENT exam IM: Present: normal exam - Neurological Neurological exam IM: Present: alert, CN II-XII intact, normal gait, oriented X3 , no focal deficits - Skin Skin exam IM: Present: dry, warm Results - Vital Signs Vital signs: Temp Pulse Resp BP 97.8 F 84 16 114/68 04/09/17 09:00 04/09/17 09:00 04/09/17 09:00 04/09/17 09:00 Assessment and Plan (1) Major depress dis, severe Current visit: Yes Status: Acute Plan: Admit inpatient for safety and stabilization, Close observation, Suicide Precautions per unit protocol, Encourage participation in unit milieu, Group Therapy, Monitor sleep, Monitor appetite, Family/Supportive other meeting Risks, benefits, side effects, alternatives discussed w/pt: Yes Patient agreeable to treatment: Yes Plans for Post Hospital Care: Home (2) Suicidal ideation Current visit: No Status: Acute (3) Overdose Current visit: No Status: Acute Plan: Admit inpatient for safety and stabilization, Close observation, Suicide Precautions per unit protocol, Encourage participation in unit milieu, Group Therapy, Monitor sleep, Monitor appetite, Family/Supportive other meeting Risks, benefits, side effects, alternatives discussed w/pt: Yes Patient agreeable to treatment: Yes Plans for Post Hospital Care: Home Qualifiers: Encounter type: subsequent encounter Injury intent: intentional self-harm Qualified Code(s): T50.902D - Poisoning by unspecified drugs, medicaments and biological substances, intentional self-harm, subsequent encounter (4) Generalized anxiety disorder Current visit: Yes Status: Acute Plan: Admit inpatient for safety and stabilization, Close observation, Suicide Precautions per unit protocol, Encourage participation in unit milieu, Group Therapy, Monitor sleep, Monitor appetite Risks, benefits, side effects, alternatives discussed w/pt: Yes Patient agreeable to treatment: Yes Plans for Post Hospital Care: Home (5) Alcohol dependence Current visit: Yes Status: Acute Plan: Admit inpatient for safety and stabilization, Close observation, Suicide Precautions per unit protocol, Encourage participation in unit milieu, Group Therapy, Monitor sleep, Monitor appetite, Family/Supportive other meeting Risks, benefits, side effects, alternatives discussed w/pt: Yes Patient agreeable to treatment: Yes Plans for Post Hospital Care: Home Qualifiers: Substance use status: with intoxication Complication of substance-induced condition: with unspecified complication Qualified Code(s): F10.229 - Alcohol dependence with intoxication, unspecified
[2017-04-09] MEDS: Gabapentin 100 MG CAPSULE PO SCH ×2 (15:18→21:49)
[2017-04-09] MEDS ORDERED: Naloxone 0.4 MG/ML INJ IVP PRN (15:36)
[2017-04-09] MEDS: (Naltrexone Hcl [Revia] 50 MG) PO SCH (21:50)
[2017-04-09] MEDS: traZODone 50 MG TABLET PO PRN (23:17)
[2017-04-10] MEDS: Nicotine 21 MG PATCH.TD24 TD SCH (08:33)
[2017-04-10] MEDS: Gabapentin 100 MG CAPSULE PO SCH ×3 (08:33→20:57)
[2017-04-10] MEDS ORDERED: (Naltrexone Hcl [Revia] 50 MG) PO SCH (09:00)
--- NOTE | 2017-04-10 10:27 | Psychiatry Progress Note ---
Date of Encounter: 04/10/17 Time of Encounter: 10:15 Subjective Interval history: Patient seen today , case d/w staff and treatment team, pt is attending groups and is compliant. had family meeting last night and as per her it was good and positive. she still is tearful when talking about her family , she has good support from family. she slept better last night. she started naltrexone last night , denies any side effects. denies suicidal ideation Review of Systems Psychiatric: Reports: depression, anxiety, anhedonia, difficulty concentrating, panic attacks Objective: Exam Patient orientation: Yes Person, Yes Time, Yes Place Level of alertness: Alert Patient appearance: Appropriate Behavior: calm, anxious Psychomotor activity: Normal Eye contact: Maintains Eye Contact Mood description: Depressed Affect description: tearful Speech pattern: Normal rate, Normal rhythm, Normal tone Speech volume: Soft/Quiet Thought process: Intact Thought content: Yes Intact, Yes Guilt Judgment: Fair Insight: Partial Results - Vital Signs Vital Signs: Temp Pulse Resp BP 98 F 81 16 111/73 04/10/17 09:59 04/10/17 09:59 04/10/17 09:59 04/10/17 09:59 Assessment and Plan (1) Major depress dis, severe Current visit: Yes Status: Acute Risks, benefits, side effects, alternatives discussed w/pt: Yes Patient agreeable to treatment: Yes (2) Suicidal ideation Current visit: No Status: Acute (3) Overdose Current visit: No Status: Acute Risks, benefits, side effects, alternatives discussed w/pt: Yes Patient agreeable to treatment: Yes Qualifiers: Encounter type: subsequent encounter Injury intent: intentional self-harm Qualified Code(s): T50.902D - Poisoning by unspecified drugs, medicaments and biological substances, intentional self-harm, subsequent encounter (4) Generalized anxiety disorder Current visit: Yes Status: Acute Risks, benefits, side effects, alternatives discussed w/pt: Yes Patient agreeable to treatment: Yes (5) Alcohol dependence Current visit: Yes Status: Acute Risks, benefits, side effects, alternatives discussed w/pt: Yes Patient agreeable to treatment: Yes Qualifiers: Substance use status: with intoxication Complication of substance-induced condition: with unspecified complication Qualified Code(s): F10.229 - Alcohol dependence with intoxication, unspecified Consult Discharge Plan - Plan Referrals: [facility] [Outside] - 04/21/17 2:00 pm (The above appointment is with Georgina Diaz, for mental health and substance abuse counseling services. You will also see Dr. Tatum, for outpatient psychiatric assessment and medication management services, on 09/02/2017 at 10:40am. Please arrive 10 minutes early to complete the check-in process. Please bring your insurance card (or HCAP award letter) and photo ID. If you are unable to keep this appointment, 24 hour business notice of cancellation is expected. If you miss your new patient appointment without providing appropriate notice, you cannot be re-scheduled. This is the first available appointment. You may contact the office regularly to check for cancellations that may allow you to be seen sooner. The [facility] is the 1st building behind [facility] in [place], [place]. Please do not use GPS or mapping apps to locate the office, as they will take you to the wrong location. ) [facility] Specialist [facility] [Outside] Myesha Garcia, DIFFUSION FURNACE OPERATOR [Advanced Practice Nurse] - 04/17/17 1:45 pm (The above appointment is with Myesha Garcia, primary care provider.)
[2017-04-10] MEDS: (Naltrexone Hcl [Revia] 50 MG) PO SCH (18:04)
[2017-04-10] MEDS: traZODone 50 MG TABLET PO PRN (22:51)
[2017-04-11] MEDS: Nicotine 21 MG PATCH.TD24 TD SCH (08:30)
[2017-04-11] MEDS: Gabapentin 100 MG CAPSULE PO SCH ×3 (08:30→21:04)
--- NOTE | 2017-04-11 10:37 | Psychiatry Progress Note ---
Date of Encounter: 04/11/17 Time of Encounter: 10:30 Subjective Interval history: Pt seen today case d/w treatment team and as per team she is doing better and attending groups. states attended AA group and enjoyed the group and learned a lot. she is compliant with medication still has anxiety and as per her able to talk herself out of down and anxiety medicine. today she is stating that she feels like lexapro helped her a lot. she states she stopped it bc of weight gain , but realizes that there were other things going on and she was educated about not stopping it she states she felt best on lexapro and feels it helped a lot in past. Review of Systems Psychiatric: Reports: depression, anxiety, difficulty concentrating, panic attacks Objective: Exam Patient orientation: Yes Person, Yes Time, Yes Place Level of alertness: Alert Patient appearance: Appropriate Behavior: anxious Psychomotor activity: Normal Eye contact: Maintains Eye Contact Mood description: Depressed, Anxious Affect description: congruent with mood Speech pattern: Normal rate Speech volume: Normal Thought process: Intact Thought content: Yes Intact Judgment: Fair Insight: Partial Results - Vital Signs Vital Signs: Temp Pulse Resp BP 98 F 88 16 125/77 04/11/17 08:59 04/11/17 08:59 04/11/17 08:59 04/11/17 08:59 Assessment and Plan (1) Major depress dis, severe Current visit: Yes Status: Acute Risks, benefits, side effects, alternatives discussed w/pt: Yes Patient agreeable to treatment: Yes (2) Suicidal ideation Current visit: No Status: Acute (3) Overdose Current visit: No Status: Acute Risks, benefits, side effects, alternatives discussed w/pt: Yes Patient agreeable to treatment: Yes Qualifiers: Encounter type: subsequent encounter Injury intent: intentional self-harm Qualified Code(s): T50.902D - Poisoning by unspecified drugs, medicaments and biological substances, intentional self-harm, subsequent encounter (4) Generalized anxiety disorder Current visit: Yes Status: Acute Risks, benefits, side effects, alternatives discussed w/pt: Yes Patient agreeable to treatment: Yes (5) Alcohol dependence Current visit: Yes Status: Acute Risks, benefits, side effects, alternatives discussed w/pt: Yes Patient agreeable to treatment: Yes Qualifiers: Substance use status: with intoxication Complication of substance-induced condition: with unspecified complication Qualified Code(s): F10.229 - Alcohol dependence with intoxication, unspecified Consult Discharge Plan - Plan Referrals: [facility] [Outside] - 04/21/17 2:00 pm (The above appointment is with Georgina Diaz, for mental health and substance abuse counseling services. You will also see Dr. Tatum, for outpatient psychiatric assessment and medication management services, on 09/02/2017 at 10:40am. Please arrive 10 minutes early to complete the check-in process. Please bring your insurance card (or HCAP award letter) and photo ID. If you are unable to keep this appointment, 24 hour business notice of cancellation is expected. If you miss your new patient appointment without providing appropriate notice, you cannot be re-scheduled. This is the first available appointment. You may contact the office regularly to check for cancellations that may allow you to be seen sooner. The [facility] is the 1st building behind [facility] in [place], [place]. Please do not use GPS or mapping apps to locate the office, as they will take you to the wrong location. ) [facility] Supervisor [facility] [Outside] - 04/29/17 8:00 am (The above appointment is with, Dr. Lucy Dalton for outpatient psychiatric assessment and medication management services on at in the same office. Please arrive 15 minutes early to complete paperwork. Please bring your insurance card, photo ID and medications in their original bottles. If you do not have insurance, bring proof of income to apply for the sliding fee scale. If you are unable to keep this appointment, 24 hour business notice of cancellation is expected. This is the first available appointment. You may contact the office regularly to check for cancellations that may allow you to be seen sooner. ) Myesha Garcia, EDGAR [Advanced Practice Nurse] - 04/17/17 1:45 pm (The above appointment is with Myesha Garcia, primary care provider.)
[2017-04-11] MEDS: (Naltrexone Hcl [Revia] 50 MG) PO SCH (18:09)
[2017-04-11] MEDS: traZODone 50 MG TABLET PO SCH (22:02)
[2017-04-12] MEDS: Gabapentin 100 MG CAPSULE PO SCH ×3 (08:34→20:47)
[2017-04-12] MEDS: Nicotine 21 MG PATCH.TD24 TD SCH (08:34)
--- NOTE | 2017-04-12 11:36 | Psychiatry Progress Note ---
Date of Encounter: 04/12/17 Time of Encounter: 11:25 Subjective Interval history: patient seen today , states doing very well and slept good with trazodone. she denies side effects. moods better, no suicidal thoughts, i get some times jittery. she is showing improvement with treatment plan. dc planning for tommorow. Review of Systems Psychiatric: Reports: depression, anxiety, panic attacks Objective: Exam Patient orientation: Yes Person, Yes Time, Yes Place Level of alertness: Alert Patient appearance: Appropriate Behavior: calm, cooperative Psychomotor activity: Normal Eye contact: Maintains Eye Contact Mood description: Anxious Affect description: congruent with mood Speech pattern: Normal rate, Normal rhythm, Normal tone Speech volume: Normal Thought process: Intact Thought content: Yes Intact Judgment: Good Insight: Partial Results - Vital Signs Vital Signs: Temp Pulse Resp BP 97.8 F 74 16 104/63 04/12/17 08:38 04/12/17 08:38 04/12/17 08:38 04/12/17 08:38 Assessment and Plan (1) Major depress dis, severe Current visit: Yes Status: Acute Risks, benefits, side effects, alternatives discussed w/pt: Yes Patient agreeable to treatment: Yes (2) Suicidal ideation Current visit: No Status: Acute (3) Overdose Current visit: No Status: Acute Risks, benefits, side effects, alternatives discussed w/pt: Yes Patient agreeable to treatment: Yes Qualifiers: Encounter type: subsequent encounter Injury intent: intentional self-harm Qualified Code(s): T50.902D - Poisoning by unspecified drugs, medicaments and biological substances, intentional self-harm, subsequent encounter (4) Generalized anxiety disorder Current visit: Yes Status: Acute Risks, benefits, side effects, alternatives discussed w/pt: Yes Patient agreeable to treatment: Yes (5) Alcohol dependence Current visit: Yes Status: Acute Risks, benefits, side effects, alternatives discussed w/pt: Yes Patient agreeable to treatment: Yes Qualifiers: Substance use status: with intoxication Complication of substance-induced condition: with unspecified complication Qualified Code(s): F10.229 - Alcohol dependence with intoxication, unspecified Consult Discharge Plan - Plan Referrals: [facility] [Outside] - 04/21/17 2:00 pm (The above appointment is with Georgina Diaz, for mental health and substance abuse counseling services. You will also see Dr. Tatum, for outpatient psychiatric assessment and medication management services, on 09/02/2017 at 10:40am. Please arrive 10 minutes early to complete the check-in process. Please bring your insurance card (or HCAP award letter) and photo ID. If you are unable to keep this appointment, 24 hour business notice of cancellation is expected. If you miss your new patient appointment without providing appropriate notice, you cannot be re-scheduled. This is the first available appointment. You may contact the office regularly to check for cancellations that may allow you to be seen sooner. The [facility] is the 1st building behind [facility] in [place], [place]. Please do not use GPS or mapping apps to locate the office, as they will take you to the wrong location. ) [facility] Footwear Sales Leader [facility] [Outside] - 04/29/17 8:00 am (The above appointment is with, Dr. Lucy Dalton for outpatient psychiatric assessment and medication management services on at in the same office. Please arrive 15 minutes early to complete paperwork. Please bring your insurance card, photo ID and medications in their original bottles. If you do not have insurance, bring proof of income to apply for the sliding fee scale. If you are unable to keep this appointment, 24 hour business notice of cancellation is expected. This is the first available appointment. You may contact the office regularly to check for cancellations that may allow you to be seen sooner. ) Myesha Garcia, EDGAR [Advanced Practice Nurse] - 04/17/17 1:45 pm (The above appointment is with Myesha Garcia, primary care provider.)
[2017-04-12] MEDS: (Naltrexone Hcl [Revia] 50 MG) PO SCH (17:50)
[2017-04-12] MEDS: traZODone 50 MG TABLET PO SCH (22:25)
[2017-04-13] MEDS: Nicotine 21 MG PATCH.TD24 TD SCH (08:47)
[2017-04-13] MEDS: Gabapentin 100 MG CAPSULE PO SCH (08:47)
[2017-04-13 08:51] VITALS: BP 97/55
--- NOTE | 2017-04-13 10:24 | Discharge Summary ---
Date of Encounter: 04/13/17 Time of Encounter: 09:58 Diagnosis - Discharge Diagnosis (1) Major depress dis, severe Status: Acute (2) Suicidal ideation Status: Resolved (3) Overdose Status: Resolved Qualifiers: Encounter type: subsequent encounter Injury intent: intentional self-harm Qualified Code(s): T50.902D - Poisoning by unspecified drugs, medicaments and biological substances, intentional self-harm, subsequent encounter (4) Generalized anxiety disorder Status: Acute (5) Alcohol dependence Status: Acute Qualifiers: Substance use status: with intoxication Complication of substance-induced condition: with unspecified complication Qualified Code(s): F10.229 - Alcohol dependence with intoxication, unspecified Medications - Discharge Medications Prescriptions: Escitalopram [Lexapro] 10 mg PO DAILY #30 tab Gabapentin [Neurontin] 100 mg PO TID #90 hydrOXYzine pamoate [HydrOXYzine Pamoate] 25 mg PO TID PRN #30 PRN Reason: Anxiety traZODone [TraZODone] 100 mg PO HS #30 tab Acetaminophen [Tylenol] 650 mg PO Q6HR PRN tab 04/08/17 [Rx] Albuterol Sulfate [Albuterol Inhaler] 2 puff IH [id number] PRN 04/08/17 [Rx] Folic Acid 1 mg PO DAILY tab 04/08/17 [Rx] Nicotine Patch [Nicoderm] 21 mg TD DAILY 04/08/17 [Rx] Omeprazole [PriLOSEC] 20 mg PO DAILY@0630 04/08/17 [Rx] Vitamin B Complex/Vit C/Vit E [Stresstab] 1 each PO DAILY tab 04/08/17 [Rx] Naltrexone HCl [Revia] 50 mg PO DAILY 04/09/17 [History] Escitalopram [Lexapro] 10 mg PO DAILY #30 tab 04/13/17 [Rx] Gabapentin [Neurontin] 100 mg PO TID #90 04/13/17 [Rx] Patient Taking Own Medication 1 each PO QPM each 04/13/17 [Rx] hydrOXYzine pamoate [HydrOXYzine Pamoate] 25 mg PO TID PRN #30 04/13/17 [Rx] traZODone [TraZODone] 100 mg PO HS #30 tab 04/13/17 [Rx] Allergies No Known Allergies Allergy (Verified 04/07/17 17:51) Provider Date of admission: 04/08/17 20:33 Primary care physician: PCP NONE Assessment and Plan - Follow up Plan Follow up with: [facility] [Outside] - 04/21/17 2:00 pm (The above appointment is with Georgina Diaz, for mental health and substance abuse counseling services. You will also see Dr. Tatum, for outpatient psychiatric assessment and medication management services, on 09/02/2017 at 10:40am. Please arrive 10 minutes early to complete the check-in process. Please bring your insurance card (or HCAP award letter) and photo ID. If you are unable to keep this appointment, 24 hour business notice of cancellation is expected. If you miss your new patient appointment without providing appropriate notice, you cannot be re-scheduled. This is the first available appointment. You may contact the office regularly to check for cancellations that may allow you to be seen sooner. The [facility] is the 1st building behind [facility] in [place], [place]. Please do not use GPS or mapping apps to locate the office, as they will take you to the wrong location. ) [facility] Tetryl Wringer Operator [place] [Outside] - 04/29/17 8:00 am (The above appointment is with, Dr. Lucy Dalton for outpatient psychiatric assessment and medication management services on at in the same office. Please arrive 15 minutes early to complete paperwork. Please bring your insurance card, photo ID and medications in their original bottles. If you do not have insurance, bring proof of income to apply for the sliding fee scale. If you are unable to keep this appointment, 24 hour business notice of cancellation is expected. This is the first available appointment. You may contact the office regularly to check for cancellations that may allow you to be seen sooner. ) Myesha Garcia, EDGAR [Advanced Practice Nurse] - 04/17/17 1:45 pm (The above appointment is with Myesha Garcia, primary care provider.) Overall status at discharge: Stable Disposition: Home, Self-Care Hospital Course Hospital course: Ms. Philip is a 41 year old female who was admitted after OD on xanax and Alcohol. she has h/o depression and anxiety and allcohol dependence, she had stopped her antidepressants and had been more depressed , isolative and self medicated with Alcohol , she had shown improvement with structured enviorment and medications. she has good support and has short and director long term care goals. Time spent discussing smoking cessation with patient: 3 to 10 minutes Does patient wish to continue nicotine replacement upon disc: No - Time Spent with Patient Total time spent providing and/or coordinating discharge services: Less than 30 minutes Quality - Multiple Antipsychotics Patient discharged on 2 or more antipsychotic medications: No Mental Status Exam - Mental Status Exam Patient orientation: Yes Person, Yes Time, Yes Place Level of alertness: Alert Patient appearance: Appropriate Behavior: calm, cooperative Psychomotor activity: Normal Mood description: Euthymic/stable, Anxious Affect description: congruent with mood Speech pattern: Normal rate, Normal rhythm, Normal tone Speech Volume: Normal Thought process: Intact Thought Content: Yes Intact Judgment: Good Insight: Full
== END 2017-04-13 11:25 | disposition home or self-care (01) | DRG 885 ==
LOC: MERGE 20:33 → 1ANU 20:33
PROVIDERS: ADMIT Psychiatry & Neurology Psychiatry; ATTEND Psychiatry & Neurology Psychiatry